=== PATIENT | female | born 1985 | race Caucasian/White ===

== ENCOUNTER 2017-11-18 05:03 | Inpatient (IN) | payer MEDICAID ==
[~2017-11-18 05:03] MED LIST: Lactated Ringers 1,000 ML IV SCH; Sodium Chloride 0.9% 10 ML Syringe FLUSH PRN
[2017-11-18] MEDS ORDERED: Morphine PF 1 MG/ML Amp ONE (06:28)
[2017-11-18] MEDS ORDERED: Citric Acid/Sodium Citrate Solution 30 ML Cup PO ONE (06:30)
[2017-11-18] MEDS ORDERED: Metoclopramide 10 MG/2 ML SDV IVPUSH ONE (06:30)
[2017-11-18] MEDS ORDERED: Bupivacaine 0.25% 30 ML SDV ONE (06:59)
[2017-11-18] MEDS ORDERED: ceFAZolin 2 GM in Premix Bag 1 BAG IV ONE (07:00)
--- NOTE | 2017-11-18 07:08 | PCM.PREANE ---
Preanesthetic Assessment - Anesthesia/Transfusion/Family Hx Anesthesia History: Prior Anesthesia Without Reaction Family History of Anesthesia Reaction: No Transfusion History: No Prior Transfusion(s) Intubation History: Unknown - Review of Systems General: No Symptoms Pulmonary: No Symptoms Cardiovascular: No Symptoms Gastrointestinal: No Symptoms Neurological: No Symptoms Other: Reports: None - Physical Assessment NPO Status Date: 11/17/17 NPO Status Time: 16:30 Pulse: 70 O2 Sat by Pulse Oximetry: 99 Respiratory Rate: 15 Blood Pressure: 105/63 Temperature: 36.5 C Vital Signs: Last Vital Signs Temp 36.5 C 11/18/17 05:30 Pulse 70 11/18/17 06:04 Resp 15 11/18/17 05:30 BP 105/63 11/18/17 05:30 Pulse Ox Height: 1.63 m Weight: 88.904 kg ASA Class: 2 Mental Status: Alert & Oriented x3 Airway Class: Mallampati = 2 Dentition: Reports: Normal Dentition, Caries Thyro-Mental Finger Breadths: 3 Mouth Opening Finger Breadths: 3 ROM/Head Extension: Full Lungs: Clear to Auscultation, Normal Respiratory Effort Cardiovascular: Regular Rate, Regular Rhythm, No Murmurs - Lab Values: Laboratory Last Values WBC 11.40 K/mm3 (3.98-10.04) H 11/18/17 05:50 RBC 3.58 M/mm3 (3.98-5.22) L 11/18/17 05:50 Hgb 10.2 gm/L (11.2-15.7) L 11/18/17 05:50 Hct 30.5 % (34.1-44.9) L 11/18/17 05:50 MCV 85.2 fl (79.4-94.8) 11/18/17 05:50 MCH 28.5 pg (25.6-32.2) 11/18/17 05:50 MCHC 33.4 g/dl (32.2-35.5) 11/18/17 05:50 RDW Std Deviation 42.2 fL (36.4-46.3) 11/18/17 05:50 Plt Count 185 K/mm3 (182-369) 11/18/17 05:50 MPV 10.0 fl (9.4-12.3) 11/18/17 05:50 Neut % (Auto) 74.4 % (34.0-71.1) H 11/18/17 05:50 Lymph % (Auto) 16.7 % (19.3-51.7) L 11/18/17 05:50 [place] % (Auto) 7.4 % (4.7-12.5) 11/18/17 05:50 Eos % (Auto) 0.9 (0.7-5.8) 11/18/17 05:50 Baso % (Auto) 0.2 % (0.1-1.2) 11/18/17 05:50 Neut # (Auto) 8.49 K/mm3 (1.56-6.13) H 11/18/17 05:50 Lymph # (Auto) 1.90 K/mm3 (1.18-3.74) 11/18/17 05:50 [place] # (Auto) 0.84 K/mm3 (0.24-0.36) H 11/18/17 05:50 Eos # (Auto) 0.10 K/mm3 (0.04-0.36) 11/18/17 05:50 Baso # (Auto) 0.02 K/mm3 (0.01-0.08) 11/18/17 05:50 Above labs reviewed and noted and within acceptable ranges to proceed with grace forbes. - Allergies Allergies/Adverse Reactions: Allergies Allergy/AdvReac Type Severity Reaction Status Date / Time No Known Allergies Allergy Verified 11/18/17 06:37 - Anesthesia Plan Pre-Op Medication Ordered: None - Acknowledgements Anesthesia Type Planned: Spinal Pt an Appropriate Candidate for the Planned Anesthesia: Yes Alternatives and Risks of Anesthesia Discussed w Pt/Guardian: Yes Pt/Guardian Understands and Agrees with Anesthesia Plan: Yes PreAnesthesia Questionnaire Genitourinary History: Reports: Pyelonephritis, UTI, Recurrent Other Genitourinary History: 2016 treated for kidney infection, and throughout life has had frequent UTIs (denies having any UTIs with this ) [employer] WORKER History: Reports: , Spontaneous , Therapeutic - Past Surgical History Female Surgical History: Reports: None - SUBSTANCE USE Smoking Status *Q: Former Smoker Tobacco Use Within Last Twelve Months: Cigarettes Second Hand Smoke Exposure: No Date of Last Drink: 02/22/17 Recreational Drug Use History: Yes Recreational Drug Type: Reports: Amphetamines (Speed), Marijuana/Hashish Recreational Drug Last Use: 02/2017 - CURRENT (IN HOUSE) MEDS Current Meds: Current Medications Citric Acid/Sodium Citrate (Bicitra Solution) 30 ml PO ONETIME ONE Stop: 11/18/17 06:31 Cefazolin Sodium/Dextrose 2 gm (/ Premix) 50 mls @ 100 mls/hr IV ONETIME ONE Stop: 11/18/17 07:29 Lactated Ringer's (Ringers, Lactated) 1,000 mls @ 125 mls/hr IV ASDIRECTED BETTY Oxytocin/Lactated Ringer's (Pitocin In Lr 10 Units/1,000 Ml) 10 unit in 1,000 mls @ 100 mls/hr IV ASDIRECTED BETTY PRN Reason: Protocol Metoclopramide HCl (Reglan) 10 mg IVPUSH ONETIME ONE Stop: 11/18/17 06:31 Sodium Chloride (Saline Flush) 10 ml FLUSH ASDIRECTED PRN PRN Reason: Keep Vein Open Discontinued Medications Morphine Sulfate (Duramorph Pf) Confirm Administered Dose 1 mg .ROUTE .STK-MED ONE Stop: 11/18/17 06:29
[2017-11-18] MEDS ORDERED: Bupivacaine 0.5% 30 ML SDV ONE (07:09)
[2017-11-18] MEDS ORDERED: ceFAZolin 1 GM Vial ONE (07:28)
[2017-11-18] MEDS ORDERED: Phenylephrine 1% 10 MG/ML SDV ONE (07:28)
[2017-11-18] MEDS ORDERED: Lactated Ringers 2,000 ML ONE (07:28)
[2017-11-18] MEDS ORDERED: Oxytocin 10 Units/1 ML SDV ONE (07:28)
[2017-11-18] MEDS ORDERED: Ketorolac 30 MG/ML SDV ONE (07:28)
[2017-11-18] MEDS ORDERED: Ondansetron 4 MG/2 ML SDV ONE (07:28)
[2017-11-18] MEDS ORDERED: Oxytocin/Lactated Ringers 10 UNIT/1,000 ML BAG IV SCH (08:00)
[2017-11-18] MEDS ORDERED: HYDROmorphone 0.5 MG/0.5 ML Syringe IVPUSH PRN (08:06)
[2017-11-18] MEDS ORDERED: fentaNYL 100 MCG/2 ML SDV IVPUSH PRN (08:06)
[2017-11-18] MEDS ORDERED: ePHEDrine 50 MG/ML SDV IVPUSH PRN ×2 (08:06→09:19)
[2017-11-18] MEDS ORDERED: diphenhydrAMINE 50 MG/ML SDV IVPUSH PRN ×2 (08:06→09:19)
[2017-11-18] MEDS ORDERED: ePHEDrine/Normal Saline 25 MG/5 ML Syringe ONE (08:10)
[2017-11-18] MEDS ORDERED: Atropine 0.4 MG/ML SDV ONE (08:12)
[2017-11-18] MEDS ORDERED: Phenylephrine 1 MG in Sodium Chloride 0.9% 10 ML IV SCH (08:15)
--- NOTE | 2017-11-18 08:43 | PCM.POSTAN ---
POST ANESTHESIA ASSESSMENT - MENTAL STATUS Mental Status: Alert - VITAL SIGNS Pulse Rate: 81 SaO2: 98 Resp Rate: 18 Blood Pressure: 97/49 Temperature: 36.6 C - RESPIRATORY Respiratory Status: Respiratory Rate WNL, Airway Patent, O2 Saturation Stable - CARDIOVASCULAR CV Status: Pulse Rate WNL, Blood Pressure Stable - GASTROINTESTINAL GI Status: No Symptoms - POST OP HYDRATION Hydration Status: Adequate & Stable
--- NOTE | 2017-11-18 09:03 | PCM.OPNOTE ---
- General Post-Op/Procedure Note Date of Surgery/Procedure: 11/18/17 Operative Procedure(s): Repeat section Findings: Viable male weight 7 lbs. 3 oz., vertex, Apgars 8 at 1 minute and 8 at 5 minutes , no significant adhesions or abnormalities Pre Op Diagnosis: Prior , desires repeat Post-Op Diagnosis: Same Anesthesia Technique: Spinal Primary Surgeon: Carolyn Darnell Doper: Jennifer Cordova Reason Doper Was Necessary: Prior surgery, retraction Fluid Replacement, Intraop: 800 Output, Urine Amount: 200 EBL in mLs: 500 Complications: None Condition: Good Free Text/Narrative:: The patient was taken to the operating room where epidural anesthesia was dosed to surgical levels without difficulty. The patient was prepped and draped in the usual sterile fashion in the dorsal supine position with a leftward tilt. A Pfannenstiel skin incision was made with the scalpel and carried through to the underlying layer of fascia. The fascia was incised in the midline and extended laterally using Bruner scissors. Richa clamps were used to elevate the superior aspect of the fascial incision, which was elevated, and the underlying rectus muscles were dissected off bluntly and using Bruner scissors. Attention was then turned to the inferior aspect of the fascial incision, which in similar fashion was grasped with Richa clamps, elevated, and the underlying rectus muscles were dissected off bluntly and using the bruner. The rectus muscles were dissected in the midline. The peritoneum was entered bluntly; this incision was extended superiorly and inferiorly with good visualization of the bladder. The bladder blade was inserted. The vesicouterine peritoneum was identified and entered sharply using Metzenbaum scissors. This incision was extended laterally and the bladder flap was created digitally. The bladder blade was reinserted. The lower uterine segment was incised in a transverse fashion using the scalpel and with digital traction. Clear fluid was noted. The infant was subsequently delivered by flexing the head to the incision. Body and shoulders followed without difficulty. The cord was clamped and cut. The was subsequently handed to the awaiting cafe site attendant whose presence had been requested.. The placenta was delivered spontaneously intact with a three-vessel cord noted. The uterus was exteriorized and cleared of all clots and debris. The uterine incision was repaired in 2 layers using 0 monocryl. Hemostasis was visualized. Hemostasis was visualized bilaterally. The uterus was returned to the abdomen. The uterine incision was reexamined and it was noted to be hemostatic. The pelvis was copiously irrigated. The fascia was closed with 1 PDS suture, and the skin was closed with 3-0 monocryl. Sponge, lap, and instrument counts were correct x2. The patient was stable at the completion of the procedure and was subsequently transferred to the recovery room in stable condition.
[2017-11-18] MEDS ORDERED: Lanolin 100% Cream 7 GM Tube TOP PRN (09:19)
[2017-11-18] MEDS ORDERED: Dextrose 5%-Lactated Ringers 1,000 ML IV SCH (09:19)
[2017-11-18] MEDS ORDERED: Naloxone 0.4 MG/ML SDV IVPUSH PRN (09:19)
[2017-11-18] MEDS: Ketorolac 30 MG/ML SDV IVPUSH SCH ×2 (14:20→20:20)
[2017-11-18] MEDS ORDERED: Ondansetron 4 MG Tab.DIS PO PRN (17:40)
[2017-11-18] MEDS ORDERED: Measles, Mumps & Rubella Vaccine 0.5 ML SDV SUBCUT ONE (19:58)
[2017-11-19] MEDS: Ketorolac 30 MG/ML SDV IVPUSH SCH (02:39)
--- NOTE | 2017-11-19 07:12 | PCM.PNPP ---
- General Info Date of Service: 11/19/17 Functional Status: Reports: Pain Controlled, Tolerating Diet, Ambulating - Review of Systems General: Reports: No Symptoms Pulmonary: Reports: No Symptoms Cardiovascular: Reports: No Symptoms Gastrointestinal: Reports: Abdominal Pain (manageable) Genitourinary: Reports: No Symptoms Musculoskeletal: Reports: No Symptoms Neurological: Reports: No Symptoms - Patient Data Vital Signs - Most Recent: Last Vital Signs Temp 36.7 C 11/19/17 03:52 Pulse 56 L 11/19/17 03:52 Resp 16 11/19/17 05:00 BP 99/45 L 11/19/17 03:52 Pulse Ox 98 11/19/17 05:00 Weight - Most Recent: 88.904 kg I&O - Last 24 Hours: Intake & Output 11/18/17 11/19/17 11/19/17 22:59 06:59 14:59 Intake Total 1400 Output Total 1325 1650 Balance 75 -1650 Lab Results - Last 24 Hours: Laboratory Results - last 24 hr 11/18/17 11/19/17 Range/Units 05:50 06:15 WBC 11.63 H (3.98-10.04) K/mm3 RBC 3.49 L (3.98-5.22) M/mm3 Hgb 9.9 L (11.2-15.7) gm/L Hct 30.0 L (34.1-44.9) % MCV 86.0 (79.4-94.8) fl MCH 28.4 (25.6-32.2) pg MCHC 33.0 (32.2-35.5) g/dl RDW Std Deviation 43.0 (36.4-46.3) fL Plt Count 203 (182-369) K/mm3 MPV 10.6 (9.4-12.3) fl Neut % (Auto) 76.1 H (34.0-71.1) % Lymph % (Auto) 13.9 L (19.3-51.7) % [place] % (Auto) 7.7 (4.7-12.5) % Eos % (Auto) 1.8 (0.7-5.8) Baso % (Auto) 0.2 (0.1-1.2) % Neut # (Auto) 8.85 H (1.56-6.13) K/mm3 Lymph # (Auto) 1.62 (1.18-3.74) K/mm3 [place] # (Auto) 0.89 H (0.24-0.36) K/mm3 Eos # (Auto) 0.21 (0.04-0.36) K/mm3 Baso # (Auto) 0.02 (0.01-0.08) K/mm3 Blood Type A POSITIVE Gel Antibody Screen Negative Med Orders - Current: Current Medications Diphenhydramine HCl (Benadryl) 25 mg IVPUSH Q6H PRN PRN Reason: Itching or Nausea Emollient Ointment (Lansinoh Hpa) 0 gm TOP ASDIRECTED PRN PRN Reason: Sore Nipples Ephedrine Sulfate (Ephedrine Sulfate) 5 mg IVPUSH SEECOMMENT PRN PRN Reason: Other Ibuprofen (Motrin) 600 mg PO Q6H PRN PRN Reason: mild pain or fever Naloxone HCl (Narcan) 0.1 mg IVPUSH SEECOMMENT PRN PRN Reason: Respiratory Depression Ondansetron HCl (Zofran Odt) 4 mg PO Q4H PRN PRN Reason: Nausea/Vomiting Last Admin: 11/18/17 17:48 Dose: 4 mg Discontinued Medications Atropine Sulfate (Atropine) Confirm Administered Dose 0.4 mg .ROUTE .STK-MED ONE Stop: 11/18/17 08:13 Bupivacaine HCl (Marcaine 0.25%) Confirm Administered Dose 30 ml .ROUTE .STK- MED ONE Stop: 11/18/17 07:00 Bupivacaine HCl (Marcaine 0.5%) Confirm Administered Dose 30 ml .ROUTE .STK-MED ONE Stop: 11/18/17 07:10 Cefazolin Sodium (Ancef) Confirm Administered Dose 2 gm .ROUTE .STK-MED ONE Stop: 11/18/17 07:29 Citric Acid/Sodium Citrate (Bicitra Solution) 30 ml PO ONETIME ONE Stop: 11/18/17 06:31 Last Admin: 11/18/17 07:22 Dose: 30 ml Diphenhydramine HCl (Benadryl) 25 mg IVPUSH Q6H PRN PRN Reason: pruritis Stop: 11/18/17 12:00 Ephedrine Sulfate (Ephedrine In Ns) Confirm Administered Dose 25 mg .ROUTE .STK- MED ONE Stop: 11/18/17 08:11 Ephedrine Sulfate (Ephedrine Sulfate) 5 mg IVPUSH ASDIRECTED PRN PRN Reason: Hypotension Stop: 11/18/17 12:00 Fentanyl (Sublimaze) 50 mcg IVPUSH Q5M PRN PRN Reason: Pain Stop: 11/18/17 12:00 Hydromorphone HCl (Dilaudid) 0.5 mg IVPUSH Q15M PRN PRN Reason: severe pain Stop: 11/18/17 12:00 Cefazolin Sodium/Dextrose 2 gm (/ Premix) 50 mls @ 100 mls/hr IV ONETIME ONE Stop: 11/18/17 07:29 Last Admin: 11/18/17 14:32 Dose: Not Given Lactated Ringer's (Ringers, Lactated) 1,000 mls @ 125 mls/hr IV ASDIRECTED BETTY Oxytocin/Lactated Ringer's (Pitocin In Lr 10 Units/1,000 Ml) 10 unit in 1,000 mls @ 100 mls/hr IV ASDIRECTED BETTY PRN Reason: Protocol Lactated Ringer's (Ringers, Lactated) Confirm Administered Dose 2,000 mls @ as directed .ROUTE .STK-MED ONE Stop: 11/18/17 07:29 Phenylephrine HCl 1 mg/ Sodium (Chloride) 10.1 mls @ 1 mls/sec IV TITRATE BETTY PRN Reason: Protocol Stop: 11/18/17 12:00 Last Admin: 11/18/17 09:12 Dose: 1 mls/sec Dextrose/Lactated Ringer's (Dextrose 5%-Lactated Ringers) 1,000 mls @ 125 mls/ hr IV ASDIRECTED BETTY Stop: 11/18/17 17:18 Last Admin: 11/18/17 09:58 Dose: 125 mls/hr Ketorolac Tromethamine (Toradol) Confirm Administered Dose 30 mg .ROUTE .STK- MED ONE Stop: 11/18/17 07:29 Ketorolac Tromethamine (Toradol) 30 mg IVPUSH Q6H [facility] Stop: 11/19/17 02:31 Last Admin: 11/19/17 02:39 Dose: 30 mg Measles/Mumps/Rubella Vaccine Live (M-M-R Ii Vaccine) 0.5 ml SUBCUT .ONCE ONE Stop: 11/18/17 19:59 Last Admin: 11/18/17 20:24 Dose: 0.5 ml Metoclopramide HCl (Reglan) 10 mg IVPUSH ONETIME ONE Stop: 11/18/17 06:31 Last Admin: 11/18/17 07:22 Dose: 10 mg Morphine Sulfate (Duramorph Pf) Confirm Administered Dose 1 mg .ROUTE .STK-MED ONE Stop: 11/18/17 06:29 Ondansetron HCl (Zofran) Confirm Administered Dose 4 mg .ROUTE .STK-MED ONE Stop: 11/18/17 07:29 Oxytocin (Pitocin) Confirm Administered Dose 10 unit .ROUTE .STK-MED ONE Stop: 11/18/17 07:29 Phenylephrine HCl ([place]-Synephrine) Confirm Administered Dose 10 mg .ROUTE .STK- MED ONE Stop: 11/18/17 07:29 Sodium Chloride (Saline Flush) 10 ml FLUSH ASDIRECTED PRN PRN Reason: Keep Vein Open - Interaction Infant Disposition, : [place] in Room with Family Interaction: Holding Infant Feeding: Bottle Fed Infant Support Person: Sister - Recovery Exam Fundal Tone: Firm Fundal Level: 1 Fingerbreadths Below Umbilicus Fundal Placement: Midline Lochia Amount: Small, Moderate Lochia Color: Rubra/Red Episiotomy/Laceration: None - Exam General: Alert, Oriented, Cooperative Lungs: Clear to Auscultation, Normal Respiratory Effort Cardiovascular: Regular Rate, Regular Rhythm GI/Abdominal Exam: Soft, No Distention, Tender (appropriate post op) Skin: Warm, Dry, Intact Wound/Incisions: Healing Well, Dressing Dry and Intact - Problem List & Annotations (1) 39 weeks gestation of SNOMED Code(s): 39310435 Code(s): Z3A.39 - 39 WEEKS GESTATION OF Status: Acute Current Visit: Yes (2) History of SNOMED Code(s): 322291905 Code(s): Z98.891 - HISTORY OF UTERINE SCAR FROM PREVIOUS SURGERY Status: Acute Current Visit: Yes - Problem List Review Problem List Initiated/Reviewed/Updated: Yes - Assessment Assessment:: 32 G6 now [id number] s/p RLTCS at 39 0/7 wks gestation, POD#1 - Plan Plan:: * Routine cares * Bottle feeding * MMR prior to discharge * Discharge to correctional facility tomorrow
--- NOTE | 2017-11-19 08:44 | PCM48HPAN ---
Post Anesthesia Note - EVALUATION WITHIN 48HRS OF ANESTHETIC Vital Signs in Normal Range: Yes Patient Participated in Evaluation: No (pt asleep, no problems per RN) Respiratory Function Stable: Yes Airway Patent: Yes Cardiovascular Function Stable: Yes Hydration Status Stable: Yes Pain Control Satisfactory: Yes Nausea and Vomiting Control Satisfactory: Yes Mental Status Recovered: Yes
[2017-11-19] MEDS: Ibuprofen 600 MG Tab PO PRN ×2 (10:15→18:23)
[2017-11-19] MEDS: Acetaminophen/Codeine 300-30 MG Tab PO PRN ×2 (15:55→20:29)
[2017-11-20] MEDS: Acetaminophen/Codeine 300-30 MG Tab PO PRN (04:59)
--- NOTE | 2017-11-20 07:29 | PCM.DCSUM1 ---
Discharge Summary - Discharge Data Discharge Date: 11/20/17 Discharge Disposition: DC/Tfer to [facility] Enf 21 Condition: Good - Discharge Diagnosis/Problem(s) (1) 39 weeks gestation of SNOMED Code(s): 80876790 ICD Code: Z3A.39 - 39 WEEKS GESTATION OF Status: Acute Current Visit: Yes (2) History of SNOMED Code(s): 337505367 ICD Code: Z98.891 - HISTORY OF UTERINE SCAR FROM PREVIOUS SURGERY Status: Acute Current Visit: Yes - Patient Summary/Data Operative Procedure(s) Performed: Repeat section Complications: None Consults: None Recommended Follow-up Testing/Procedures: Follow up in 1-2 weeks for incision check Hospital Course: 32 y/o admitted at 39 0/7 wks for planned RLTCS. This was uncomplicated. See operative note for full details. she did well and was meeting all goals by POD#2. She was thus discharged back to her correctional facility - Patient Instructions Diet: Regular Diet as Tolerated Activity: No Lifting Over 10 Pounds Activity, Other: Pelvic Rest for 6 weeks Driving: Do Not Drive (While taking narcotics ) Showering/Bathing: May Shower, No Tub Bathing/Swimming Wound/Incision Care: Keep Operative Site/Wound Site Clean and Dry Notify Provider of: Fever, Increased Pain, Swelling and Redness, Drainage, Nausea and/or Vomiting - Discharge Plan Prescriptions/Med Rec: Acetaminophen/Codeine [Tylenol with Codeine No.3 300MG/30MG] 2 tab PO Q4H PRN # 20 tablet PRN Reason: Pain Home Medications: Home Meds Acetaminophen/Codeine [Tylenol with Codeine No.3 300MG/30MG] 2 tab PO Q4H PRN # 20 tablet 11/19/17 [Rx] Ibuprofen [IJD: Ibuprofen] 600 mg PO Q6H PRN tablet 11/19/17 [Rx] Patient Handouts: Delivery, Care After Referrals: Carolyn Darnell MD [Physician] - (2 weeks for incision check ) - Discharge Summary/Plan Comment DC Time >30 min.: No - Patient Data Vitals - Most Recent: Last Vital Signs Temp 36.2 C 11/20/17 04:59 Pulse 52 L 11/20/17 04:59 Resp 15 11/20/17 04:59 BP 112/66 11/20/17 04:59 Pulse Ox 98 11/20/17 04:59 Weight - Most Recent: 88.904 kg I&O - Last 24 hours: Intake & Output 11/19/17 11/20/17 11/20/17 22:59 06:59 14:59 Intake Total 1130 Balance 1130 Med Orders - Current: Current Medications Acetaminophen/Codeine Phosphate (Tylenol With Codeine No.3 300mg/30mg) 2 tab PO Q4H PRN PRN Reason: Pain Last Admin: 11/20/17 04:59 Dose: 2 tab Diphenhydramine HCl (Benadryl) 25 mg IVPUSH Q6H PRN PRN Reason: Itching or Nausea Emollient Ointment (Lansinoh Hpa) 0 gm TOP ASDIRECTED PRN PRN Reason: Sore Nipples Ephedrine Sulfate (Ephedrine Sulfate) 5 mg IVPUSH SEECOMMENT PRN PRN Reason: Other Ibuprofen (Motrin) 600 mg PO Q6H PRN PRN Reason: mild pain or fever Last Admin: 11/19/17 18:23 Dose: 600 mg Naloxone HCl (Narcan) 0.1 mg IVPUSH SEECOMMENT PRN PRN Reason: Respiratory Depression Ondansetron HCl (Zofran Odt) 4 mg PO Q4H PRN PRN Reason: Nausea/Vomiting Last Admin: 11/18/17 17:48 Dose: 4 mg Discontinued Medications Atropine Sulfate (Atropine) Confirm Administered Dose 0.4 mg .ROUTE .STK-MED ONE Stop: 11/18/17 08:13 Bupivacaine HCl (Marcaine 0.25%) Confirm Administered Dose 30 ml .ROUTE .STK- MED ONE Stop: 11/18/17 07:00 Bupivacaine HCl (Marcaine 0.5%) Confirm Administered Dose 30 ml .ROUTE .STK-MED ONE Stop: 11/18/17 07:10 Cefazolin Sodium (Ancef) Confirm Administered Dose 2 gm .ROUTE .STK-MED ONE Stop: 11/18/17 07:29 Citric Acid/Sodium Citrate (Bicitra Solution) 30 ml PO ONETIME ONE Stop: 11/18/17 06:31 Last Admin: 11/18/17 07:22 Dose: 30 ml Diphenhydramine HCl (Benadryl) 25 mg IVPUSH Q6H PRN PRN Reason: pruritis Stop: 11/18/17 12:00 Ephedrine Sulfate (Ephedrine In Ns) Confirm Administered Dose 25 mg .ROUTE .STK- MED ONE Stop: 11/18/17 08:11 Ephedrine Sulfate (Ephedrine Sulfate) 5 mg IVPUSH ASDIRECTED PRN PRN Reason: Hypotension Stop: 11/18/17 12:00 Fentanyl (Sublimaze) 50 mcg IVPUSH Q5M PRN PRN Reason: Pain Stop: 11/18/17 12:00 Hydromorphone HCl (Dilaudid) 0.5 mg IVPUSH Q15M PRN PRN Reason: severe pain Stop: 11/18/17 12:00 Cefazolin Sodium/Dextrose 2 gm (/ Premix) 50 mls @ 100 mls/hr IV ONETIME ONE Stop: 11/18/17 07:29 Last Admin: 11/18/17 14:32 Dose: Not Given Lactated Ringer's (Ringers, Lactated) 1,000 mls @ 125 mls/hr IV ASDIRECTED BETTY Oxytocin/Lactated Ringer's (Pitocin In Lr 10 Units/1,000 Ml) 10 unit in 1,000 mls @ 100 mls/hr IV ASDIRECTED BETTY PRN Reason: Protocol Lactated Ringer's (Ringers, Lactated) Confirm Administered Dose 2,000 mls @ as directed .ROUTE .STK-MED ONE Stop: 11/18/17 07:29 Phenylephrine HCl 1 mg/ Sodium (Chloride) 10.1 mls @ 1 mls/sec IV TITRATE BETTY PRN Reason: Protocol Stop: 11/18/17 12:00 Last Admin: 11/18/17 09:12 Dose: 1 mls/sec Dextrose/Lactated Ringer's (Dextrose 5%-Lactated Ringers) 1,000 mls @ 125 mls/ hr IV ASDIRECTED BETTY Stop: 11/18/17 17:18 Last Admin: 11/18/17 09:58 Dose: 125 mls/hr Ketorolac Tromethamine (Toradol) Confirm Administered Dose 30 mg .ROUTE .STK- MED ONE Stop: 11/18/17 07:29 Ketorolac Tromethamine (Toradol) 30 mg IVPUSH Q6H BETTY Stop: 11/19/17 02:31 Last Admin: 11/19/17 02:39 Dose: 30 mg Measles/Mumps/Rubella Vaccine Live (M-M-R Ii Vaccine) 0.5 ml SUBCUT .ONCE ONE Stop: 11/18/17 19:59 Last Admin: 11/18/17 20:24 Dose: 0.5 ml Metoclopramide HCl (Reglan) 10 mg IVPUSH ONETIME ONE Stop: 11/18/17 06:31 Last Admin: 11/18/17 07:22 Dose: 10 mg Morphine Sulfate (Duramorph Pf) Confirm Administered Dose 1 mg .ROUTE .STK-MED ONE Stop: 11/18/17 06:29 Ondansetron HCl (Zofran) Confirm Administered Dose 4 mg .ROUTE .STK-MED ONE Stop: 11/18/17 07:29 Oxytocin (Pitocin) Confirm Administered Dose 10 unit .ROUTE .STK-MED ONE Stop: 11/18/17 07:29 Phenylephrine HCl ([place]-Synephrine) Confirm Administered Dose 10 mg .ROUTE .STK- MED ONE Stop: 11/18/17 07:29 Sodium Chloride (Saline Flush) 10 ml FLUSH ASDIRECTED PRN PRN Reason: Keep Vein Open *Q Meaningful Use (DIS) - VTE *Q VTE Criteria *Q: - Stroke *Q Stroke Criteria *Q: - AMI *Q AMI Criteria *Q:
[2017-11-20] MEDS: Ibuprofen 600 MG Tab PO PRN (07:30)
== END 2017-11-20 09:05 | DRG 766 ==
LOC: UNDOADMIN 05:03 → EEVIPCON 05:03 → JD.OB 05:03
PROVIDERS: ADMIT Obstetrics & Gynecology; ATTEND Obstetrics & Gynecology
PROC: 10D00Z1 Extraction of Products of Conception, Low, Open Approach (ICD-10-PCS; principal; 2017-11-18)
PROC: 3E0234Z Introduction of Serum, Toxoid and Vaccine into Muscle, Percutaneous Approach (ICD-10-PCS; 2017-11-18)
DX: O34.211 Maternal care for low transverse scar from previous cesarean delivery (principal); N85.8 Other specified noninflammatory disorders of uterus; Z3A.39 39 weeks gestation of pregnancy; Z37.0 Single live birth; Z87.891 Personal history of nicotine dependence; Z23 Encounter for immunization
CPT/HCPCS: 01961; 36415; 85025; 86850; 86900; 86901; 90471; 90707; A9270-GY; J0461; J0690; J1885; J2274; J2370; J2405; J2590; J2765; J3490; J7042; J7050; J7120